=== PATIENT | male | born 1995 | race American Indian/Alaskan Native ===

== ENCOUNTER 2017-08-11 17:19 | Emergency (ER) | payer SELFPAY ==
[2017-08-11 17:31] VITALS: BP 146/93
--- NOTE | 2017-08-11 18:41 | Emergency Department Report ---
ED Rash HPI - HPI Chief Complaint: Skin Rash Stated Complaint: RASH Time Seen by Provider: 08/11/17 18:31 Duration: Today Location: Back (left back), Upper Extremities (left upper extremity) Suspected Cause: Unknown Rash Symptoms: Yes Blistering (vesicles to left upper ext and left upper back), No Itching (to rash sites, burning), No Facial Swelling, No Tongue/Oral Swelling , No Breathing Difficulties, No Choking Sensation, No Wheezing/Dyspnea, No Fever , No Lightheaded, No Malaise, No Myalgias Severity: moderate (6/10 pins and needles, burning) Other History: Severe reports rash to left arm and left upper back. He said he had tingling sensation to his left arm and then rash broke out. He said the rash to his left upper back broke out on which was which is 5 days ago and then rash to his left upper arm and forearm broke out this morning. He reports pain burning in and feels like pins and needles. No [id number] medication taken. Denies any difficulty breathing in, coughing or wheezing or strider. Denies any fever or chills. He's had the chickenpox in the past. ED Review of Systems ROS: Stated complaint: RASH Other details as noted in HPI Comment: All other systems reviewed and negative Constitutional: no symptoms reported Eyes: denies: eye pain, eye discharge ENT: denies: ear pain, throat pain, epistaxis, congestion Respiratory: no symptoms reported Cardiovascular: denies: chest pain, palpitations, edema, syncope Gastrointestinal: denies: abdominal pain, nausea, vomiting, constipation Musculoskeletal: denies: back pain, joint swelling, arthralgia, myalgia Skin: lesions (painful rash to left upper extremity and left upper back). denies: pruritus Neurological: denies: headache, weakness, numbness, paresthesias, confusion, abnormal gait, vertigo ED Past Medical Hx - Past Medical History Previous Medical History?: No - Surgical History Past Surgical History?: No - Family History Family history: no significant - Social History Smoking Status: Never Smoker Substance Use Type: None Other Social History: Single - Medications Home Medications: Home Medications Medication Instructions Recorded Confirmed Last Taken Type Acyclovir [Acyclovir Ointment] 30 gm TP BID #1 tube 08/11/17 Unknown Rx Acyclovir [Zovirax Tab] 800 mg PO Q8H #21 tab 08/11/17 Unknown Rx Naproxen [Naprosyn TAB] 500 mg PO BID PRN #10 tablet 08/11/17 Unknown Rx Rash Exam - Exam General: Vital signs noted. No distress. Alert and acting appropriately. This is a 21-year-old male well-nourished well-developed in no acute distress HEENT: No Periorbital Edema, No Conjuctival Injection, No Chemosis, No Perioral Edema, No Tongue Edema, No Uvular Edema, No Compromised Airway, No Drooling Lungs: Yes Good Air Exchange, No Wheezes, No Ronchi, No Stridor, No Cough, No Labored Respirations, No Retractions, No Use of Accessory Muscles, No Other Abnormal Lung Sounds Heart: Yes Regular, No Murmur Skin: Yes Tenderness, Yes Erythema, Yes Other (noted vesicular rash to left upper arm and forearm. Left upper back some areas are scabbed over. Tender to palpate. No drainage), No Urticarial Rash, No Maculopapular Rash, No Morbilliform rash, No Bulla(e), No Excoriations, No Weeping, No Edema, No Encrustations Other: Positive: Abdomen Normal, Neurologic Normal, Musculoskeletal Normal ED Course Vital Signs 08/11/17 17:28 Temperature 98 F Pulse Rate 72 Blood Pressure 146/93 O2 Sat by Pulse 99 Oximetry Respiration 17 - Reevaluation(s) Reevaluation #1: 08/11/17 18:45 Is stable in no acute distress ED Medical Decision Making - Medical Decision Making ED course: Patient here reports that he has a rash that started 5 days ago to his left upper back now rash to left arm and forearm that is burning and feels like pins and needles. He reports tingling sensation prior to rash breaking out to his left arm and forearm this morning. Rash to left upper back proceed rash to left upper extremity. He has no respiratory symptoms. I discussed with patient that he has shingles rash. Treatment plan and diagnosis explained to patient and he voiced understanding. I discussed with him that he needs to stay away from people that are , small children under age and elderly individuals. I also discussed with him that he is contagious until rash dries up. Patient discharged home with prescription for acyclovir tablets, ointment and Motrin. I discussed with him that he needs to follow-up with his primary care or supervisor gluing in 2-3 days. Critical care attestation.: If time is entered above; I have spent that time in minutes in the direct care of this critically ill patient, excluding procedure time. ED Disposition Clinical Impression: Painful skin lesion Shingles rash Qualifiers: Herpes zoster complications: without complications Qualified Code(s): B02.9 - Zoster without complications Disposition: TO HOME OR SELFCARE Is pt being admited?: No Does the pt Need Aspirin: No Condition: Stable Instructions: Herpes Zoster (ED) Additional Instructions: Take medication as prescribed Keep affected areas clean and dry and practice good hand hygiene. If you touch rash then you'll have to wash her hands immediately Stay away from people with low immune system such as, children under age, elderly and individuals and individuals and also people that have autoimmune and immune system diseases. You can take Motrin as needed for pain per prescription You are considered contaminated until all vesicles on your skin are crusted over. Please do not make skin to skin contact with any individual until rash is gone. He can go to the health department to get checked for STD to include HIV as shingles is associated with immunocompromise state and younger individuals. [facility] does free HIV testing and and . [facility] also provides free ST the and HIV test then Prescriptions: Acyclovir [Acyclovir Ointment] 30 gm TP BID #1 tube Acyclovir [Zovirax Tab] 800 mg PO Q8H #21 tab Naproxen [Naprosyn TAB] 500 mg PO BID PRN #10 tablet PRN Reason: Pain Referrals: [facility]– [place][Note 2] [Outside] - 2-3 Days MEG MAGAÑA MD [Staff Physician] - 2-3 Days Forms: Work/School Release Form(ED)
== END 2017-08-11 19:10 | disposition home or self-care (01) ==
LOC: ED 17:19
DX: B02.9 Zoster without complications (principal); L98.9 Disorder of the skin and subcutaneous tissue, unspecified
CPT/HCPCS: 99282